=== PATIENT | female | born 1945 | race Caucasian/White ===

== ENCOUNTER 2020-09-11 15:27 | Emergency (ER) | payer MEDICARE, SELFPAY ==
--- NOTE | ~2020-09-11 | CT_ITS ---
EXAMINATION: CT brain wo con INDICATION: Head injury COMPARISON: None TECHNIQUE: Standard unenhanced head CT. The dose-length product (DLP) was 605.33 mGy-cm. The mA was a djusted according to patient size. Iterative reconstruction technique was employed. FINDINGS: There is left parietal scalp soft tissue swelling. There is no acute intraparenchymal hemor rhage. No evidence of mass lesion. No evidence of acute infarction. There is mild periventricular and subcortical hypodensity probably related to small vessel ischemic disease. There is mild prominence of the sulci and ventricles related to cerebral atrophy. Intracranial calcified cerebral atherosclero sis is noted. There are no extra-axial collections. There is no mass effect or midline shift. The orb its are unremarkable. The visualized sinuses and mastoid air cells are well aerated. IMPRESSION: 1. No acute intracranial abnormality. 2. Age related findings. Reviewed, dictated and finalized at location A. [employer]
--- NOTE | ~2020-09-11 | XR_ITS ---
EXAMINATION: [id number] INDICATION: Left rib pain TECHNIQUE: A frontal view of the chest and 3 views of the left ribs were obtained. COMPARISON: None. FINDINGS: The lungs are free of acute opacities. There is no pleural effusion or pneumothorax. The ca rdiomediastinal silhouette is normal. No displaced rib fracture is identified. There are surgical cli ps in the left breast and left axilla. IMPRESSION: 1. No acute cardiopulmonary abnormality or evidence of displaced rib fracture. Reviewed, dictated and finalized at location A. INSPECTOR
--- NOTE | 2020-09-11 15:44 | ED.FALL ---
HPI - Fall General Chief Complaint: Fall Stated Complaint: head injury Time Seen by Provider: 09/11/20 15:44 Source: patient Limitations: no limitations History of Present Illness HPI Narrative: 75-year-old woman comes in today complaining of headache, occipital scalp wound, and left rib pain after slipping on the ice and falling. This happened an hour prior to arrival. She denies loss of consciousness and had no preceding nausea, lightheadedness, chest pain, shortness of breath or weakness. She denies nausea or vomiting since the injury. MD complaint: fall Onset (ago): hour(s) (1) Fall from: standing Fall witnessed: yes, by bystander Place fall occurred: work Loss of consciousness: none Prolonged down time: no Symptoms prior to fall: none Context: tripped/slipped Location of injury: head and chest Severity: moderate Quality: throbbing Associated symptoms (after fall): headache Review of Systems Constitutional: Constitutional: Denies chills and Denies fever(s) Eyes: Eyes: Denies change in vision and Denies photophobia ENT: Denies nasal congestion and Denies sore throat Cardiovascular: Cardiovascular: Denies chest pain and Denies radiating jaw, neck or arm pain Respiratory: Respiratory: Denies cough and Denies dyspnea Gastrointestinal: Gastrointestinal: Denies abdominal pain, Denies nausea and Denies vomiting Genitourinary: Genitourinary: Denies nocturia and Denies dysuria Musculoskeletal: Musculoskeletal: Reports as per HPI, Denies back pain, Denies arthralgias and Denies joint swelling Integumentary/Breasts: Skin/Breast: Denies pruritus, Denies erythema and Denies rash Neurologic: Denies vertigo, Denies dizziness, Denies syncope, Reports headache(s) and Denies focal weakness Hematologic/Lymphatic: Hematologic/Lymphatic: Denies easy bleeding and Denies easy bruising Allergic/Immunologic: Allergic/Immunologic: Denies lip swelling and Denies throat swelling [facility] Past Medical History Medical History (Updated 09/11/20 @ 16:34 by Александр Mylse MD) Breast cancer Surgical History Surgical History (Updated 09/11/20 @ 15:53 by Александр Myles MD) H/O mastectomy H/O: hysterectomy Social History Social History (Updated 09/11/20 @ 15:53 by Александр Myles MD) Smoking status: Never smoker Alcohol intake: never Substance use: never Living arrangements: with family Gender identity (if verbalized by the patient): Female Exam Const: General: healthy appearing and alert Orientation/consciousness: patient oriented x3 Limitations: no limitations Other: mild acute distress HENMT: Head: normal to inspection Head images: 1. 1 cm scalp laceration with a small amount of oozing blood. 3 cm diameter hematoma. Ears: external ears normal, TM's normal bilaterally and EAC's normal General nose exam: Normal nares present Face and sinus: normal facial exam Mouth: Yes moist mucous membranes Throat: posterior oropharynx normal Eyes: Conjunctivae: conjunctivae normal Pupils: Equal, round and reactive pupils present EOM: EOMs intact bilaterally Neck: Neck: normal visual inspection and no lymphadenopathy Other: nontender, normal range of motion. Chest: Chest palpation & inspection: tenderness rib ( Left lateral lower) Resp: Effort & Inspection: normal respiratory effort and not labored Auscultation: clear to auscultation bilaterally, no rales, no rhonchi and no wheezes Cardio: Rate: abnormal rate Rhythm: abnormal rhythm Heart sounds: no murmurs GI: GI Palp: Yes Soft to palpation and No Tenderness to palpation present (GI) Skin: General skin exam: normal color, no jaundice and no pallor Rashes: no rashes Neuro: General: patient oriented x3, moves all extremities, no focal motor deficits and CN's II-XI intact bilaterally Speech: normal speech Gait exam (Neuro): Normal gait present Extrem: General: normal to inspection and no clubbing, cyanosis or edema Psych: Appearance: gross
[2020-09-11 15:51] VITALS: BP 171/97; PULSE 83; RESP 20; TEMP 36.7; O2SAT 98
[2020-09-11] MEDS: ACETAMINOPHEN 500 MG TABLET 1000 MG PO (16:19)
[2020-09-11] MEDS: TETANUS,DIPHTHERIA,AC PERTUSSIS ADULT 0.5 ML (ADACEL) IM (16:20)
[2020-09-11 16:41] VITALS: BP 149/90; PULSE 75; RESP 20; TEMP 36.9; O2SAT 98
== END 2020-09-11 16:46 | disposition home or self-care (01) ==
PROVIDERS: Emergency Provider Emergency Medicine
DX: S01.01XA Laceration without foreign body of scalp, initial encounter (principal); S09.90XA Unspecified injury of head, initial encounter; S20.212A Contusion of left front wall of thorax, initial encounter; W01.0XXA Fall on same level from slipping, tripping and stumbling without subsequent striking against object, initial encounter
CPT/HCPCS: 12001; 70450; 71101; 90471; 90715; 99282; 99284

== ENCOUNTER 2020-09-18 13:33 | Emergency (ER) | payer MEDICARE, SELFPAY ==
[2020-09-18 13:40] VITALS: BP 143/93; PULSE 89; RESP 18; TEMP 36.2; O2SAT 99
--- NOTE | 2020-09-18 14:21 | ED.WOUNDLAC ---
HPI - Wound/Laceration General Chief Complaint: Wound/Laceration Stated Complaint: removal of staple in head Source: patient Mode of arrival: ambulatory Limitations: no limitations History of Present Illness HPI narrative: well healing, needs staple removed Patient tetanus UTD: Yes Context: accidental Related Data Home Medications Medication Instructions Recorded Confirmed No Home Medications 09/18/20 09/18/20 Allergies Allergy/AdvReac Type Severity Reaction Status Date / Time prednisone Allergy Itching Verified 09/18/20 13:49 Review of Systems Review of Systems: All systems reviewed & are unremarkable except as noted in HPI and below PMFSH Past Medical History Medical History Breast cancer Surgical History Surgical History H/O mastectomy H/O: hysterectomy Social History Social History Smoking status: Never smoker Alcohol intake: never Substance use: never Gender identity (if verbalized by the patient): Female Exam Const: General: no acute distress and alert Nutritional Appearance: well nourished Orientation/consciousness: patient oriented x3 HENMT: Head: normal to inspection Other: well healing laceration Skin: General skin exam: normal color Neuro: General: patient oriented x3 Extrem: General: normal to inspection Psych: Mental Status: mental status grossly normal Course Vital Signs Vital signs: Vital Signs Temperature 36.2 C L 09/18/20 13:40 Pulse Rate 89 09/18/20 13:40 Respiratory Rate 18 09/18/20 13:40 Blood Pressure 143/93 H 09/18/20 13:40 Pulse Oximetry 99 09/18/20 13:40 Temperature 36.2 C L 09/18/20 13:40 Pulse Rate 89 09/18/20 13:40 Respiratory Rate 18 09/18/20 13:40 Blood Pressure 143/93 H 09/18/20 13:40 Pulse Oximetry 99 09/18/20 13:40 Critical Care Time Critical Care Time Critical Care Time: No Discharge Plan Discharge Clinical Impression: Encounter for removal of angelo Patient Disposition: Home, Self-Care Condition: Stable Instructions: Laceration (ED) Prescriptions: No Action No Home Medications RF: 0 Follow-up/Referrals: PHYSICIAN NOT ON STAFF,NONSTAFF [Primary Care Provider] - Time of Disposition: 13:57
== END 2020-09-18 14:03 | disposition home or self-care (01) ==
PROVIDERS: Emergency Provider Emergency Medicine
DX: Z48.02 Encounter for removal of sutures (principal)
CPT/HCPCS: 99281; 99282